=== PATIENT | female | born 1965 | race Caucasian/White ===

== ENCOUNTER 2018-03-02 19:53 | Emergency (ER) | payer SELFPAY | END 2018-03-02 19:58 | disposition left against medical advice (07) | LOC: ED 19:53 | DX: H57.11 Ocular pain, right eye (principal); H57.8 Other specified disorders of eye and adnexa; Z53.21 Procedure and treatment not carried out due to patient leaving prior to being seen by health care provider ==

== ENCOUNTER 2020-12-19 23:00 | Emergency (ER) | payer SELFPAY ==
[2020-12-19 23:52] VITALS: BP 129/82
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
== END 2020-12-20 04:00 | disposition home or self-care (01) ==
LOC: ED 23:00
DX: T24.231A Burn of second degree of right lower leg, initial encounter (principal); L97.219 Non-pressure chronic ulcer of right calf with unspecified severity; Z79.899 Other long term (current) drug therapy; X08.8XXA Exposure to other specified smoke, fire and flames, initial encounter; Y93.89 Activity, other specified; Y92.89 Other specified places as the place of occurrence of the external cause; Y99.8 Other external cause status
CPT/HCPCS: 99282

== ENCOUNTER 2021-05-26 18:50 | Emergency (ER) | payer OTHER ==
[2021-05-26 19:49] VITALS: BP 149/91
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
--- NOTE | 2021-05-26 22:46 | XRay Report ---
CERVICAL SPINE 5 VIEWS INDICATION / CLINICAL INFORMATION: neck pain. COMPARISON: None available. FINDINGS: VERTEBRAE: No acute fracture. Mild reversal of normal cervical lordosis is likely positional. DISC SPACES / FACET JOINTS:No significant abnormality. PARASPINAL SOFT TISSUES:No significant abnormality. ADDITIONAL FINDINGS: None. Signer Name: Perry Lozano MD Signed: 05/26/2021 10:41 PM Workstation Name: [id number]
== END 2021-05-26 23:10 | disposition home or self-care (01) ==
LOC: ED 18:50
DX: S16.1XXA Strain of muscle, fascia and tendon at neck level, initial encounter (principal); M54.6 Pain in thoracic spine; R51.9 Headache, unspecified; M79.18 Myalgia, other site; Z79.899 Other long term (current) drug therapy; V87.7XXA Person injured in collision between other specified motor vehicles (traffic), initial encounter; Y93.89 Activity, other specified; Y92.488 Other paved roadways as the place of occurrence of the external cause; Y99.8 Other external cause status
CPT/HCPCS: 72040; 99283